=== PATIENT | female | born 1975 | race Caucasian/White ===

== ENCOUNTER 2024-01-20 13:30 | Emergency (ER) | payer OTHER, SELFPAY ==
[2024-01-20 13:38] VITALS: BP 111/74
--- NOTE | 2024-01-20 15:21 | ED.GENMED ---
History of Present Illness
General
Chief Complaint: Cough
Source: patient and family
Exam Limitations: none
Time Seen by Provider: 01/20/24 13:40
Nursing documentation reviewed up to this point in time: agreed with
History of Present Illness
History of Present Illness:
48-year-old female presenting to the emergency department with concerns of a cough over the past few weeks. Denies any chest pain shortness of breath nausea vomiting or recent fevers.
Review of Systems
Review of Systems
Allergies reviewed?: Yes
All Other Systems: ROS reviewed and negative except as documented in HPI and ROS
Phy Exam
Physical Exam
Physical Exam:
GENERAL: Alert , in no apparent distress
EYE: pupils equal and reactive
NECK: Supple, no significant adenopathy.
ENT: o/p clr, mmm.
CARDIAC: Regular rate and rhythm .
LUNGS: Clear breath sounds bilaterally, no acute respiratory distress, no wheezes/rales/rhonchi
ABDOMEN: Soft, without focal tenderness, no r/g, no cvat
NEUROLOGICAL: Alert and oriented, no focal neuro deficits
SKIN: Warm and dry, skin intact.
MUSCULOSKELETAL: No edema, well perfused.
PSYCH: Normal and appropriate interaction.
Course
Orders/Labs/Results
Orders:
Orders
01/20/24 13:40
Chest [CR Chest - 2 Views ] Urgent
Comment:
Reason For Exam: cough
01/20/24 15:09
Dexamethasone [Decadron] 10 mg PO NOW STA
Vital Signs
Initial and Last Documented VS:
Initial Vital Signs
Temp Pulse Resp Pulse Ox
98.2 F 80 16 99
01/20/24 13:35 01/20/24 13:35 01/20/24 13:35 01/20/24 13:35
Last Documented Vital Signs
Temp Pulse Resp BP Pulse Ox
98.2 F 75 20 128/84 98
01/20/24 13:35 01/20/24 15:58 01/20/24 15:58 01/20/24 15:58 01/20/24 15:58
MDM/Problems Addressed
MDM/Problems Addressed:
48-year-old female presenting to the emergency department today with concerns of ongoing cough over the past few weeks. Here well-appearing no distress normal vital signs chest x-ray without signs of pneumonia. Patient with likely bronchitis plan
for symptomatic treatment return precautions given.
*Critical Care Note
Total Time (30-74mins, 75-104mins- exclusive of procedures): Not Applicable
ED Attending Note
-
Portions of this chart may have been created with voice recognition software.� Occasional wrong word or��sound alike� substitutions may have occurred due to the inherent limitations of voice recognition software.
Discharge Plan
Departure
Patient Disposition: Home (Routine Discharge)
Date of Disposition: 01/20/24
Time of Disposition: 15:21
Patient with high blood pressure during this ER visit?: No
Condition: Good
Covid-19: Not Applicable
Discharge Problem:
Cough, Acute bronchitis
Instructions: Acute Bronchitis, Adult (DC)
Referrals:
NONE,* [Family Provider] -
Activity Restrictions/Additional Instructions:
You came to the emergency department today with concerns of ongoing cough. Here you had a reassuring assessment with normal vital signs and a normal chest x-ray. Please use complications and follow-up close with the primary care doctor. Return to
the emergency department for any worsening, new or concerning symptoms.
Interventions
Interventions:
*Risk Screen - Suicide Last Done: 01/20/24 14:00
*General Assessment Last Done: 01/20/24 14:00
*Neglect/Abuse Screening Last Done: 01/20/24 14:00
*Nursing Disposition Last Done: 01/20/24 15:59
ED- Pulmonary Assessment Last Done: 01/20/24 14:00
Discharge Date and Time
Discharge Date/Time: 01/20/24 16:00
Print Language: PANAMANIAN
[2024-01-20] MEDS: DECADRON 10 MG PO (15:35)
[2024-01-20 15:58] VITALS: BP 128/84
== END 2024-01-20 16:00 | disposition home or self-care (01) ==
LOC: EMR 13:30
PROVIDERS: EMERGENCY PHYSICIAN Emergency Medicine
DX: J20.9 Acute bronchitis, unspecified (principal); R05.9 Cough, unspecified
CPT/HCPCS: 99283; 71046